=== PATIENT | female | born 1945 | race Caucasian/White ===

== ENCOUNTER → 2017-12-07 | Outpatient (CLI) | payer MEDICARE, BC ==
[~2017-12-07] MED LIST: ACYC800T99 PO; ASCO-188 PO; CALC-852 PO; HYDR-4309 PO; MULT-885 PO; OMEG-11 PO; PNEU0.5D3 IM; ZOLP-358 PO; [UNRECOGNIZED DRUG - REMARK]
--- NOTE | 2017-12-08 08:33 | RADIOLOGY IMAGING REPORT ---
FACILITY: [facility] PATIENT NAME: ALEXANDER MCFARLANE : [id number] MR: [id number] V: [id number] EXAM DATE: [id number] ORDERING PHYSICIAN: CRUZ BUTT TECHNOLOGIST: Kelly Allen PROCEDURE:BILATERAL DIGITAL SCREENING MAMMOGRAM WITH CAD ASSISTED INTERPRETATION & 3D TOMOSYNTHESIS COMPARISON:Prior mammograms 11/25/16, 11/22/15, 07/10/14, 12/12/13, 07/12/13, 07/06/13. INDICATIONS:SCREENING FINDINGS: Moderately dense heterogeneous fibroglandular tissue is seen throughout the breasts. The parenchymal pattern has remained stable allowing for difference in mammographic technique & patient positioning. There is no evidence of malignant appearing mass, malignant appearing calcifications or other secondary sign of malignancy in either breast. DIAGNOSTIC CATEGORY 1--NEGATIVE. RECOMMENDATIONS: ROUTINE MAMMOGRAM AND CLINICAL EVALUATION. IMPRESSION: BIRADS 1: Negative. No significant abnormality is seen. Dictated by: Mireille Willams M.D. on 12/07/2017 at 15:40 Transcribed by: DAIJA on 12/07/2017 at 15:52 Approved by: Mireille Willams M.D. on 12/08/2017 at 8:32 [facility]
== END ==
LOC: MAMO 00:55
PROVIDERS: ATTEND Internal Medicine
DX: Z12.31 Encounter for screening mammogram for malignant neoplasm of breast (principal)
CPT/HCPCS: 77063; 77067

== ENCOUNTER → 2017-12-19 | Outpatient (CLI) | payer MEDICARE, BC | LOC: LAB 04:23 | PROVIDERS: ATTEND Internal Medicine | DX: E78.5 Hyperlipidemia, unspecified (principal) | CPT/HCPCS: 36415; 82040; 82247; 82310; 82374; 82435; 82465; 82565; 82947; 83718; 84075; 84132; 84155; 84295; 84450; 84460; 84478; 84520 ==

== ENCOUNTER → 2018-12-23 | Outpatient (CLI) | payer MEDICARE, BC ==
[~2018-12-23] MED LIST changes: -HYDR-4309 PO; +HYDR-653 PO; +TRAZ50TA52 PO
[2018-12-23 11:37] LABS: PLATELET COUNT, AUTOMATED 178 K/uL (150-450)
== END ==
LOC: LAB 11:20
PROVIDERS: ATTEND Emergency Medicine
DX: E78.5 Hyperlipidemia, unspecified (principal); M85.80 Other specified disorders of bone density and structure, unspecified site
CPT/HCPCS: 36415; 82040; 82247; 82306; 82310; 82374; 82435; 82465; 82565; 82947; 83718; 84075; 84132; 84155; 84295; 84443; 84450; 84460; 84478; 84520; 85025

== ENCOUNTER → 2019-01-11 | Outpatient (CLI) | payer MEDICARE, BC ==
[~2019-01-11] MED LIST changes: +ALEN70TA43 PO
--- NOTE | 2019-01-11 10:47 | RADIOLOGY IMAGING REPORT ---
FACILITY: [facility] PATIENT NAME: Lupe Cuellar : 1945 MR: [id number] V: [id number] EXAM DATE: ORDERING PHYSICIAN: VICKY PORTILLO TECHNOLOGIST: Location: [facility] Patient: Lupe Cuellar : 1945 Visit/Account:[id number] Date of Sevice: 01/11/2019 BONE DENSITY HISTORY: Postmenopausal DEXA Scan Clinical history: Osteopenia. Comparison: DEXA scan from 02/22/2013. LUMBAR SPINE: The bone mineral density (BMD) measured from L1-L4 correlates with a Z-score 1.5 and a T-score of 0. 1 which is Normal as defined by the World Health Organization. The corresponding risk of fracture in the lumbar spine is Not increased compared with a young adult reference population. This value has improved by 4.2 % since the prior study. More than 5% change is considered significant. HIP: Bone mineral density (BMD) measured in the Left total hip region correlates with a Z-score 0.4 and a T-score of -1.0 which is osteopenia as defined by the World Health Organization. The corresponding r isk of fracture in the hip is increased 2 times compared with a young adult reference population. Thi s value has improved slightly by 0.2 % since the prior study. More than 5% change is considered sign ificant. Bone mineral density (BMD) measured in the Femoral Neck region measures 0.814 g/cm2. T score -1.6. Osteopenia. Fracture is increased over 3 times. IMPRESSION: 1. Lumbar spine: Normal. There has been improvement by 4.2% in the bone mineral density since the p revious exam. 2. Left Total Hip: Osteopenia. There has been minimal improvement by 0.2% in the bone mineral densi ty since the previous exam. 3. Femoral Neck: Bone Mineral Density is 0.814 g/cm2 . Osteopenia. The next DEXA scan of this patient should include the following sites: L1-L4 and the left hip. FRAX? WHO Fracture Risk Assessment Tool link: <http://www.shef.ac.uk/FRAX/tool.jsp?locationValue=9> PLEASE NOTE: 1) The World Health Organization defines low BMD as follows: T-score Normal > -1 Osteopenia < -1 and > -2.5 Osteoporosis < -2.5 without fractures Established osteoporosis < -2.5 with fractures 2) In general, you may wish to consider: Diagnosis Treatment Follow-up DEXA Normal BMD Prevention 2-3 years Osteopenia Prevention/therapy 1-2 years Osteoporosis Therapy Yearly 3) Fracture risk estimated from the T-score is more accurate for vertebral fractures (often spontane ous) than for hip fractures. Report Dictated By: Sonny Leija MD at 01/11/2019 10:21 AM Report E-Signed By: Sonny Leija MD at 01/11/2019 10:40 AM RAMANN:VANDANA
--- NOTE | 2019-01-11 14:45 | RADIOLOGY IMAGING REPORT ---
FACILITY: [facility] [place] PATIENT NAME: Lupe Cuellar : 1945 MR: [id number] V: [id number] EXAM DATE: ORDERING PHYSICIAN: VICKY PORTILLO TECHNOLOGIST: Location: [facility] Patient: Lupe Cuellar : 1945 Visit/Account:[id number] Date of Sevice: 01/11/2019 THYROID HISTORY: Thyroid nodule ADDITIONAL HISTORY: None. COMPARISON: May 09, 2016 FINDINGS: Thyroid size: Right lobe: 3.2 x 1.1 x 1.0 cm Left lobe: 3.8 x 1.0 x 1.6 cm Isthmus: 2 mm Thyroid echogenicity and vascularity: Within normal limits. Thyroid nodules: Right lobe: None. Left lobe: 1.0 x 0.6 x 1.2 cm nodule within the midpole. The morphology of this nodule is cons istent with low suspicion for malignancy. Isthmus: None. IMPRESSION: Solitary 1.0 cm nodule within the midpole of the left lobe of the thyroid. This was seen on the prev ious study. The morphology of this lesion is consistent with a low suspicion of malignancy. These lesions are on ly recommended for biopsy one may exceed 1.5 cm in greatest dimension. Report Dictated By: Davi Griggs at 01/11/2019 2:31 PM Report E-Signed By: Davi Griggs at 01/11/2019 2:37 PM WSN:[email or web address]
--- NOTE | 2019-01-18 10:04 | RADIOLOGY IMAGING REPORT ---
FACILITY: [facility] [place] PATIENT NAME: ALEXANDER MCFARLANE : [id number] MR: [id number] V: [id number] EXAM DATE: ORDERING PHYSICIAN: VICKY PORTILLO TECHNOLOGIST: Kelly Allen PROCEDURE: BILATERAL DIGITAL SCREENING MAMMOGRAM WITH CAD ASSISTED INTERPRETATION & 3D TOMOSYNTHESIS. REASON FOR STUDY: Screening. COMPARISON: None. VIEWS OBTAINED: 2D & 3D full field CC & MLO projections. BREAST DENSITY: The breasts are heterogeneously dense. MAMMOGRAM FINDINGS: Benign appearing asymmetries are scattered in both breasts, unchanged. IMPRESSION: BIRADS 1: Negative. DIAGNOSTIC CATEGORY 1--NEGATIVE. RECOMMENDATIONS: ROUTINE MAMMOGRAM AND CLINICAL EVALUATION IN 1YR. Dictated by: Kwame Walker M.D. on 01/12/2019 at 8:38 Transcribed by: DAIJA on 01/12/2019 at 9:39 Approved by: Ainsley Pappas M.D. on 01/18/2019 at 10:00 [facility]
== END ==
LOC: US 00:53
PROVIDERS: ATTEND Emergency Medicine
DX: Z12.31 Encounter for screening mammogram for malignant neoplasm of breast (principal); Z04.1 Encounter for examination and observation following transport accident; M85.852 Other specified disorders of bone density and structure, left thigh; Z80.3 Family history of malignant neoplasm of breast
CPT/HCPCS: 76536; 77063; 77067; 77080